=== PATIENT | female | born 1995 | race Caucasian/White ===

== ENCOUNTER 2021-01-06 22:49 | Inpatient (IN) | payer BC ==
[~2021-01-06] VITALS: Ht 157.5 cm; Wt 80.5 kg
[2021-01-06] MEDS ORDERED: VALIUM5 MG PO (23:04)
[2021-01-06] MEDS ORDERED: PRISTIQ100 MG PO (23:04)
[2021-01-06] MEDS ORDERED: ADDERALL 15 MG15 MG PO (23:04)
[2021-01-06 23:26] LABS: BASOPHILS 0.5 % (0-2); EOSINOPHILS 1.2 % (0-7); HEMATOCRIT 39.9 % (36.0-48.0); HEMOGLOBIN 13.5 g/dL (12-16); LYMPHOCYTES 32.1 % (15-50); MCH 29.6 pg (26.0-34.0); MCHC 33.8 g/dL (31.0-37.0); MCV 87.5 fL (80.0-100.0); MEAN PLATELET VOLUME 8.2 fL (7.4-10.4); MONOCYTES 10.9 % (2-11); NEUTROPHILS 55.3 % (40-80); PLATELET COUNT 278 10x3/uL (130-400); RBC 4.56 10x6/uL (4.00-5.40); RDW 13.8 % (11.5-14.5); WBC 8.7 10x3/uL (4.8-10.8)
[2021-01-06 23:43] LABS: CALC OSMOLALITY 275 mosm/kg (275-300); CALCIUM 8.4 mg/dL (8.5-10.1); CARBON DIOXIDE 27.9 mmol/L (21.0-32.0); CHLORIDE - SERUM 103 mmol/L (98-107); CREATININE - SERUM 0.8 mg/dL (0.6-1.3); GLUCOSE 98 mg/dL (74-106); POTASSIUM - SERUM 3.7 mmol/L (3.5-5.1); SODIUM 138 mmol/L (136-145); UREA NITROGEN 12 mg/dL (7-18); eGFR NON AFRICAN AMERICAN > 90 mL/min (90-120)
--- NOTE | 2021-01-07 00:26 | NUR ---
DR. CARLISLE NOTIFIED AND REVIEWED PT'S BEHAVIOR AND ASSESSMENT RESULTS. PT IS A LOW RISK PER DR. HAM. DR. CARLISLE STATED TO GIVE RESOURCES TO PT AT TIMES OF DISCHARGE. NO FURTHER ORDERS AT THIS TIME. RESOURCES REVIEWED WITH PT AND HE VERBALIZED UNDERSTANDING.
[2021-01-07 00:29] LABS: HCG URINE NEGATIVE (NEGATIVE)
[2021-01-07 00:31] LABS: BACTERIA FEW HPF (<MOD); BILIRUBIN NEGATIVE (NEGATIVE); KETONE 2+ mg/dL (< 1+); NITRITE NEGATIVE (NEGATIVE); SQUAMOUS EPITHELIAL 8 HPF (0-4); UROBILINOGEN NORMAL mg/dL (< 2); WHITE CELLS - URINE 47 HPF (0-4)
[2021-01-07 00:37] LABS: ALBUMIN 3.9 g/dL (3.4-5.0); ALKALINE PHOSPHATASE 128 U/L (30-120); ALT (SGPT) 29 U/L (10-68); BILIRUBIN - TOTAL 0.46 mg/dL (0.2-1.3); PROTEIN - SERUM 7.3 g/dL (6.4-8.2)
[2021-01-07 05:20] VITALS: BP 135/85
[2021-01-07 06:38] LABS: CKMB 0.5 U/L (0.0-3.6); CREATINE KINASE 60 UL (21-215); MAGNESIUM - SERUM 1.9 mg/dL (1.8-2.4); TROPONIN-I < 0.017 ng/mL (0.000-0.060)
[2021-01-07 06:47] LABS: APTT 32.2 SECONDS (22.8-39.4); INR 1.24 (0.85-1.17); PROTIME 14.4 SECONDS (11.6-15.0)
--- NOTE | 2021-01-07 19:55 | NUR ---
PT FROM ER VIA W/C. NO DISTRESS NOTED, RESP EVEN AND UNLABORED, NO DISTRESS NOED, PT AMBULATED TO BED, CL IN REACH, SR UP X 2.
[2021-01-08] VITALS: BP 111/70
[2021-01-08 04:00] VITALS: BP 113/67
[2021-01-08 04:44] VITALS: BP 127/78; Ht 157.5 cm; Wt 80.5 kg
[2021-01-08 07:33] LABS: BASOPHILS 0.7 % (0-2); EOSINOPHILS 2.1 % (0-7); HEMATOCRIT 35.1 % (36.0-48.0); HEMOGLOBIN 11.6 g/dL (12-16); LYMPHOCYTES 49.5 % (15-50); MCH 29.4 pg (26.0-34.0); MCHC 33.1 g/dL (31.0-37.0); MCV 88.9 fL (80.0-100.0); MEAN PLATELET VOLUME 8.5 fL (7.4-10.4); MONOCYTES 9.7 % (2-11); RBC 3.95 10x6/uL (4.00-5.40); RDW 14.1 % (11.5-14.5)
[2021-01-08 07:35] LABS: PLATELET COUNT 219 10x3/uL (130-400); WBC 5.3 10x3/uL (4.8-10.8)
[2021-01-08 07:47] LABS: ALKALINE PHOSPHATASE 98 U/L (30-120); ALT (SGPT) 24 U/L (10-68); CALC OSMOLALITY 279 mosm/kg (275-300); CALCIUM 7.6 mg/dL (8.5-10.1); CARBON DIOXIDE 27.4 mmol/L (21.0-32.0); CHLORIDE - SERUM 108 mmol/L (98-107); CREATININE - SERUM 0.7 mg/dL (0.6-1.3); GLUCOSE 106 mg/dL (74-106); MAGNESIUM - SERUM 1.9 mg/dL (1.8-2.4); POTASSIUM - SERUM 3.7 mmol/L (3.5-5.1); PROTEIN - SERUM 5.6 g/dL (6.4-8.2); SODIUM 141 mmol/L (136-145); UREA NITROGEN 9 mg/dL (7-18); eGFR NON AFRICAN AMERICAN > 90 mL/min (90-120)
[2021-01-08 07:48] LABS: ALBUMIN 2.9 g/dL (3.4-5.0)
[2021-01-08 08:01] LABS: BILIRUBIN - TOTAL 0.08 mg/dL (0.2-1.3)
[2021-01-08 08:42] VITALS: BP 105/71
[2021-01-08 18:11] VITALS: BP 112/73
--- NOTE | 2021-01-08 19:30 | NUR ---
PT IN BED, AAO X 4, RESP EVEN AND UNLABORED, NO DISTRESS NOTED, CL IN REACH, SR UP X 2.
[2021-01-08 20:00] VITALS: BP 115/71
[2021-01-09] VITALS: BP 141/93
--- NOTE | 2021-01-09 00:24 | NUR ---
PT IV TO LEFT AC HURTING, IV TAKEN OUT, NEW 22G PLACED TO LEFT FOREARM AT THIS TIME.
[2021-01-09 04:00] VITALS: BP 107/61
--- NOTE | 2021-01-09 06:30 | NUR ---
BEDSIDE REPORT RECEIVED. PT RESTING IN BED, EYES CLOSED, RESP UNLABORED. 22G PIV R FOREARM INFUSING NS AT 75 PER HOUR.
[2021-01-09 06:32] LABS: BASOPHILS 0.6 % (0-2); EOSINOPHILS 1.8 % (0-7); HEMATOCRIT 37.9 % (36.0-48.0); HEMOGLOBIN 12.8 g/dL (12-16); LYMPHOCYTES 44.1 % (15-50); MCH 29.4 pg (26.0-34.0); MCHC 33.6 g/dL (31.0-37.0); MCV 87.3 fL (80.0-100.0); MEAN PLATELET VOLUME 8.5 fL (7.4-10.4); MONOCYTES 8.3 % (2-11); NEUTROPHILS 45.2 % (40-80); RBC 4.34 10x6/uL (4.00-5.40); RDW 13.8 % (11.5-14.5)
[2021-01-09 06:33] LABS: PLATELET COUNT 268 10x3/uL (130-400); WBC 6.8 10x3/uL (4.8-10.8)
[2021-01-09 06:44] LABS: ALBUMIN 3.2 g/dL (3.4-5.0); ALKALINE PHOSPHATASE 104 U/L (30-120); BILIRUBIN - TOTAL 0.11 mg/dL (0.2-1.3); CALCIUM 7.7 mg/dL (8.5-10.1); CARBON DIOXIDE 28.8 mmol/L (21.0-32.0); CHLORIDE - SERUM 105 mmol/L (98-107); CREATININE - SERUM 0.7 mg/dL (0.6-1.3); GLUCOSE 106 mg/dL (74-106); MAGNESIUM - SERUM 1.6 mg/dL (1.8-2.4); POTASSIUM - SERUM 3.4 mmol/L (3.5-5.1); PROTEIN - SERUM 6.3 g/dL (6.4-8.2); SODIUM 141 mmol/L (136-145); eGFR NON AFRICAN AMERICAN > 90 mL/min (90-120)
[2021-01-09 06:50] LABS: ALT (SGPT) 37 U/L (10-68); CALC OSMOLALITY 278 mosm/kg (275-300); UREA NITROGEN 6 mg/dL (7-18)
[2021-01-09 08:15] VITALS: BP 115/70
--- NOTE | 2021-01-09 08:50 | NUR ---
PT ALERT AND ORIENTED X4. BREATH SOUNDS CLEAR, EQUAL ERENDIRA. S1S2 NORMAL RATE AND RHYTHM. NO CURRENT COMPLAINTS. CALL LIGHT IN REACH.
[2021-01-09] MEDS ORDERED: CIPRO500 MG PO (09:12)
== END 2021-01-09 11:30 | disposition home or self-care (01) | DRG 690 ==
LOC: D.ER 22:49 → D.EDHOLD 01-07 04:52 → D.M2 01-07 04:52 → OBSVTIME 01-07 04:52 → D.M2 01-07 17:08
PROVIDERS: Family Medicine; ADMIT Family Medicine; ATTEND Family Medicine
DX: N10 Acute pyelonephritis (principal); F41.8 Other specified anxiety disorders; F90.9 Attention-deficit hyperactivity disorder, unspecified type; F43.10 Post-traumatic stress disorder, unspecified